=== PATIENT | female | born 1950 | race Caucasian/White ===

== ENCOUNTER → 2023-07-13 07:35 | Outpatient (REF) | payer MEDICARE, OTHER, SELFPAY ==
[2023-07-13 09:08] LABS: % Basophils 0.8 % (0-2); % Immature Granulocytes 0.3 % (0-0.5); % Lymphocytes 39.5 % (20.5-51.1); % Monocytes 6.8 % (1.7-9.3); % Neutrophils 52.6 % (42.2-75.2); Absolute Lymphocytes 1.5 10^3/uL (1.2-3.4); Absolute Monocytes 0.3 10^3/uL (0.1-0.6); Hematocrit 37.9 % (37.0-47.0); Hemoglobin 12.5 g/dL (12.0-16.0); Mean Corpuscular Hgb 30.1 pg (27.0-31.0); Mean Corpuscular Volume 91.3 fL (81.0-99.0); Mean Platelet Volume 10.4 fL (7.4-10.4); Nucleated Red Blood Cells % 0 %; Platelet Count 219 10^3/uL (130-400); Red Blood Cell Count 4.15 10^6/uL (4.20-5.40); Red Cell Dist. Width 13.1 % (11.5-14.5); White Blood Cell Count 3.9 10^3/uL (4.8-10.8)
[2023-07-13 09:44] LABS: ALT (SGPT) 19 U/L (0-35); AST (SGOT) 30 U/L (14-36); Albumin 4.5 g/dl (3.5-5.0); Alkaline Phosphatase 55 U/L (38-126); Direct Bilirubin 0.4 mg/dl (0.0-0.4); HDL Cholesterol 110 mg/dl; LDL Cholesterol, Calculated 81 mg/dl; Total Bilirubin 0.9 mg/dl (0.2-1.3); Total Cholesterol 205 mg/dl (50-199); Total Protein 7.2 g/dl (6.3-8.2); Triglyceride 72 mg/dl (10-149); Very Low Density Lipoprotein 14 mg/dl (0-30)
== END ==
LOC: RAD 07:35
PROVIDERS: ATTENDING PHYSICIAN Family Medicine; REFERRING PHYSICIAN Internal Medicine Gastroenterology
DX: R93.422 Abnormal radiologic findings on diagnostic imaging of left kidney (principal); E78.2 Mixed hyperlipidemia; K92.1 Melena
CPT/HCPCS: 36415; 76775; 80061; 80076; 85025

== ENCOUNTER → 2024-02-14 14:02 | Outpatient (REF) | payer MEDICARE, OTHER, SELFPAY | LOC: WDC 14:02 | PROVIDERS: ATTENDING PHYSICIAN Family Medicine | DX: Z12.31 Encounter for screening mammogram for malignant neoplasm of breast (principal) | CPT/HCPCS: 77063; 77067 ==

== ENCOUNTER → 2025-02-01 10:07 | Outpatient (REF) | payer MEDICARE, OTHER, SELFPAY | LOC: PAVMRI 10:07 | PROVIDERS: ATTENDING PHYSICIAN Student in an Organized Health Care Education/Training Program | DX: R41.3 Other amnesia (principal) | CPT/HCPCS: 70553; A9575 ==